=== PATIENT | male | born 1985 | race Caucasian/White ===

== ENCOUNTER 2021-05-30 10:33 | Emergency (ER) | payer OTHER ==
[2021-05-30] MEDS ORDERED: CYCLOBENZAPRINE10 MG PO (12:34)
== END 2021-05-30 12:41 | disposition home or self-care (01) ==
LOC: ER1 10:33
DX: M54.50 Low back pain, unspecified (principal); Z88.2 Allergy status to sulfonamides
CPT/HCPCS: 72131; 99283